=== PATIENT | female | born 2000 | race Hispanic/Latino ===

== ENCOUNTER 2018-06-07 08:54 | Emergency (ER) | payer MEDICAID, OTHER ==
[2018-06-07 09:26] LABS: BASOPHILS % (AUTO) 0.3 % (0.0-5.0); EOSINOPHILS % (AUTO) 0.5 % (0.0-8.0); HEMATOCRIT 41.7 % (36-48); LYMPHOCYTES % (AUTO) 24.5 % (21.0-51.0); MEAN CORPUSCULAR HEMOGLOBIN 28.3 pg (27.0-33.0); MEAN CORPUSCULAR HGB CONC 33.8 g/dL (32.0-36.0); MEAN CORPUSCULAR VOLUME 83.6 fL (80-100); MONOCYTES % (AUTO) 5.5 % (3.0-13.0); NEUTROPHILS % (AUTO) 69.2 % (40.0-77.0); PLATELET COUNT (AUTO) 257 K/uL (130-400); RED BLOOD CELL COUNT(AUTO) 4.98 MIL/uL (4.00-5.50); WHITE BLOOD COUNT (AUTO) 10.5 K/uL (4.8-10.8)
[2018-06-07 09:28] LABS: APPEARANCE,URINE Cloudy (CLEAR); BILIRUBIN,URINE Negative (NEGATIVE); COLOR,URINE Yellow (YELLOW); GLUCOSE, URINE (UA) Negative (NEGATIVE); HCG,QUAL RESULT POSITIVE (NEGATIVE); KETONES,URINE Negative (NEGATIVE); LEUKOCYTE ESTERASE ,URINE Moderate (NEGATIVE); NITRATE,URINE Negative (NEGATIVE); OCCULT BLOOD,URINE Negative (NEGATIVE); PH,URINE 6.5 (5.0-8.0); PROTEIN,URINE Negative (NEGATIVE); UROBILINOGEN,URINE 0.2 mg/dL (0.2-1.0)
[2018-06-07 09:32] LABS: CREATININE 0.6 mg/dL (0.5-1.5); POTASSIUM 3.4 mmol/L (3.5-5.1)
[2018-06-07 09:43] LABS: BACTERIA,URINE Rare /HPF (None Seen); RBC,URINE 0-1 /HPF (0-1); SQUAMOUS EPITHELIAL CELL,UR Moderate /HPF (0-2)
== END 2018-06-07 10:14 | disposition home or self-care (01) ==
LOC: EDH 08:54
DX: O23.41 Unspecified infection of urinary tract in pregnancy, first trimester (principal); Z3A.01 Less than 8 weeks gestation of pregnancy
CPT/HCPCS: 36415; 76817; 80048; 81001; 81025; 84702; 85025; 86900; 86901

== ENCOUNTER 2018-08-24 16:48 | Emergency (ER) | payer MEDICAID ==
[2018-08-24] MEDS ORDERED: DIPHENHYDRAMINE HCL 25 MG CAPSULE ONE (17:24)
== END 2018-08-24 18:49 | disposition home or self-care (01) ==
LOC: EDH 16:48
DX: O26.892 Other specified pregnancy related conditions, second trimester (principal); Z3A.18 18 weeks gestation of pregnancy; Z87.891 Personal history of nicotine dependence
CPT/HCPCS: 87804 ×2; 99283; Q0163

== ENCOUNTER 2022-01-10 23:13 | Observation (INO) | payer MEDICAID ==
[~2022-01-10] VITALS: Ht 157.5 cm; Wt 68.9 kg
[~2022-01-10 23:13] MED LIST: PREN-196 PO; PREN-64 PO
[2022-01-10 23:15] VITALS: BP 115/73
[2022-01-10] MEDS ORDERED: LACTATED RINGERS 1000ML 1,000 ML IV SCH (23:30)
[2022-01-10 23:59] LABS: APPEARANCE,URINE Clear (CLEAR); BILIRUBIN,URINE Negative (NEGATIVE); COLOR,URINE Yellow (YELLOW); GLUCOSE, URINE (UA) Negative (NEGATIVE); KETONES,URINE 40 mg/dL (NEGATIVE); LEUKOCYTE ESTERASE ,URINE Trace (NEGATIVE); NITRATE,URINE Negative (NEGATIVE); OCCULT BLOOD,URINE Negative (NEGATIVE); PH,URINE 6.5 (5.0-8.0); PROTEIN,URINE Negative (NEGATIVE); UROBILINOGEN,URINE 0.2 mg/dL (0.2-1.0)
[2022-01-11 00:02] LABS: AMPHET/METH SCREEN,URINE NEGATIVE (NEGATIVE); BARBITURATE SCREEN, URINE NEGATIVE (NEGATIVE); BENZODIAZEPINES SCREEN,URINE NEGATIVE (NEGATIVE); CANNABINOID SCREEN,URINE NEGATIVE (NEGATIVE); COCAINE SCREEN,URINE NEGATIVE (NEGATIVE); OPIATE SCREEN,URINE NEGATIVE (NEGATIVE); PHENCYCLIDINE SCREEN,URINE NEGATIVE (NEGATIVE)
[2022-01-11 00:37] LABS: BACTERIA,URINE Rare /HPF (None Seen); RBC,URINE None Seen /HPF (0-1); WBC,URINE 0-1 /HPF (0-1)
[2022-01-11] MEDS ORDERED: TERBUTALINE SULFATE VIAL 1MG/ML SQ ONE (01:57)
[2022-01-11] MEDS ORDERED: TERBUTALINE SULFATE VIAL 1MG/ML SQ SCH ×2 (02:00→06:30)
[2022-01-11] MEDS ORDERED: ACETAMINOPHEN 500 MG TABLET PO ONE (02:00)
[2022-01-11] MEDS ORDERED: LACTATED RINGERS 1000ML 1,000 ML IV SCH (02:00)
[2022-01-11] MEDS ORDERED: ACETAMINOPHEN 500 MG TABLET ONE (02:02)
[2022-01-11] MEDS ORDERED: CALCIUM GLUC 1GM/10ML VIAL IV PRN (03:30)
[2022-01-11] MEDS ORDERED: MAGNESIUM 4GM PREMIX 100ML 100 ML IV SCH (03:30)
[2022-01-11] MEDS ORDERED: MAGNESIUM SULFATE 40GM/1000ML 1,000 ML IV PRN (03:30)
== END 2022-01-11 08:15 | disposition home or self-care (01) ==
LOC: EDH 23:13 → LDH 23:14
PROVIDERS: ADMIT Obstetrics & Gynecology; ATTEND Obstetrics & Gynecology
DX: O99.891 Other specified diseases and conditions complicating pregnancy (principal); Z20.822 Contact with and (suspected) exposure to COVID-19; M54.9 Dorsalgia, unspecified; O62.9 Abnormality of forces of labor, unspecified; O26.893 Other specified pregnancy related conditions, third trimester; R50.9 Fever, unspecified; R10.9 Unspecified abdominal pain; Z3A.28 28 weeks gestation of pregnancy; Z79.899 Other long term (current) drug therapy
CPT/HCPCS: 59025; 80305; 81001; 87635; 87804 ×2; 96360; 96361 ×2; 96372 ×2; G0378 ×9; G0379; J3105; J7120 ×2; J3475

== ENCOUNTER 2022-03-28 18:20 | Emergency (ER) | payer MEDICAID ==
[~2022-03-28] VITALS: Ht 157.5 cm; Wt 70.8 kg
[~2022-03-28 18:20] MED LIST changes: +DOCU-116 PO; +IBUP-2077 PO; -PREN-196 PO; +PREN-226 PO; -PREN-64 PO
[2022-03-28 18:22] VITALS: BP 132/86
[2022-03-28] MEDS ORDERED: ACETAMINOPHEN 500 MG TABLET PO ONE (18:30)
[2022-03-28] MEDS ORDERED: IBUPROFEN 600 MG TABLET PO ONE (18:30)
[2022-03-28 18:58] LABS: APPEARANCE,URINE SL CLOUDY (CLEAR); BILIRUBIN,URINE NEGATIVE (NEGATIVE); COLOR,URINE YELLOW (YELLOW); GLUCOSE, URINE (UA) NEGATIVE (NEGATIVE); KETONES,URINE NEGATIVE (NEGATIVE); LEUKOCYTE ESTERASE ,URINE TRACE (NEGATIVE); NITRATE,URINE NEGATIVE (NEGATIVE); OCCULT BLOOD,URINE LARGE (NEGATIVE); PROTEIN,URINE NEGATIVE (NEGATIVE)
[2022-03-28 19:00] LABS: BASOPHILS % (AUTO) 0.2 % (0.0-5.0); EOSINOPHILS % (AUTO) 0.3 % (0.0-8.0); HEMATOCRIT 38.4 % (36-48); LYMPHOCYTES % (AUTO) 10.8 % (21.0-51.0); MEAN CORPUSCULAR HEMOGLOBIN 27.5 pg (27.0-33.0); MEAN CORPUSCULAR HGB CONC 33.3 g/dL (32.0-36.0); MEAN CORPUSCULAR VOLUME 82.4 fL (79-99); MONOCYTES % (AUTO) 5.2 % (3.0-13.0); PLATELET COUNT (AUTO) 197 K/uL (130-400); RED BLOOD CELL COUNT(AUTO) 4.66 MIL/uL (4.00-5.50)
[2022-03-28 19:09] LABS: BACTERIA,URINE Rare /HPF (None Seen); SQUAMOUS EPITHELIAL CELL,UR Few /HPF (0-2)
[2022-03-28 19:11] LABS: CREATININE 0.9 mg/dL (0.5-1.5); POTASSIUM 3.6 mmol/L (3.5-5.1)
[2022-03-28 19:16] LABS: ALBUMIN 2.7 g/dL (3.5-5.0); CRP QUANTITATIVE 107.6 mg/L (0.00-9.0); TOTAL PROTEIN, SERUM 7.5 g/dL (6.0-8.3)
[2022-03-28] MEDS ORDERED: IBUP-2070 PO (19:37)
[2022-03-28] MEDS ORDERED: ACET-2247 PO (19:37)
== END 2022-03-28 19:49 | disposition home or self-care (01) ==
LOC: EDH 18:20
DX: J06.9 Acute upper respiratory infection, unspecified (principal); Z20.822 Contact with and (suspected) exposure to COVID-19; Z79.1 Long term (current) use of non-steroidal anti-inflammatories (NSAID)
CPT/HCPCS: 99283; 87635; 80053; 85025; 87040 ×2; 87880; 87804 ×2; 83605; 86140; 81001; 36415; C9803

== ENCOUNTER → 2023-05-31 | Emergency (ER) | payer MEDICAID ==
[~2023-05-31] MED LIST changes: +ACET-2247 PO; +IBUP-2070 PO
== END ==
LOC: EDH 21:26
DX: R10.9 Unspecified abdominal pain (principal); Z53.21 Procedure and treatment not carried out due to patient leaving prior to being seen by health care provider

== ENCOUNTER 2023-08-16 21:49 | Emergency (ER) | payer MEDICAID ==
[~2023-08-16] VITALS: Ht 154.9 cm; Wt 65.3 kg
[2023-08-17 00:07] LABS: APPEARANCE,URINE CLEAR (CLEAR); BILIRUBIN,URINE NEGATIVE (NEGATIVE); GLUCOSE, URINE (UA) NEGATIVE (NEGATIVE); KETONES,URINE NEGATIVE (NEGATIVE); LEUKOCYTE ESTERASE ,URINE NEGATIVE Leu/uL (NEGATIVE); NITRATE,URINE NEGATIVE (NEGATIVE); OCCULT BLOOD,URINE NEGATIVE (NEGATIVE); PROTEIN,URINE NEGATIVE (NEGATIVE); UROBILINOGEN,URINE 0.2 mg/dL (0.2-1.0)
[2023-08-17 00:10] LABS: ADD UA MICROSCOPIC NO; COLOR,URINE Light-Yellow (YELLOW)
[2023-08-17 00:52] LABS: BASOPHILS # (AUTO) 0.02 K/uL (0.00-0.20); BASOPHILS % (AUTO) 0.2 % (0.0-5.0); EOSINOPHILS # (AUTO) 0.06 K/uL (0.00-0.70); EOSINOPHILS % (AUTO) 0.7 % (0.0-8.0); HEMATOCRIT 40.1 % (36-48); IMMATURE GRANULOCYTE ABSOLUTE 0.03 K/uL (0-1); LYMPHOCYTES # (AUTO) 2.6 K/uL (1.0-4.8); MEAN CORPUSCULAR HEMOGLOBIN 28.1 pg (27.0-33.0); MEAN CORPUSCULAR HGB CONC 34.2 g/dL (32.0-36.0); MEAN CORPUSCULAR VOLUME 82.3 fL (79-99); MONOCYTES # (AUTO) 0.6 K/uL (0.1-1.0); MONOCYTES % (AUTO) 6.2 % (3.0-13.0); NEUTROPHILS # (AUTO) 5.8 K/uL (1.8-7.7); NEUTROPHILS % (AUTO) 63.6 % (40.0-77.0); PLATELET COUNT (AUTO) 238 K/uL (130-400); RED BLOOD CELL COUNT(AUTO) 4.87 MIL/uL (4.00-5.50); RED CELL DISTRIBUTION WIDTH 13.7 % (11.0-15.5); WHITE BLOOD COUNT (AUTO) 9.1 K/uL (4.8-10.8)
[2023-08-17 01:00] LABS: CREATININE 0.6 mg/dL (0.5-1.5); POTASSIUM 4.1 mmol/L (3.5-5.1)
[2023-08-17 01:25] LABS: ALBUMIN 3.9 g/dL (3.5-5.0); BILIRUBIN,TOTAL 0.6 mg/dL (0.2-1.0); TOTAL PROTEIN, SERUM 7.9 g/dL (6.0-8.3)
[2023-08-17] MEDS ORDERED: OMEP40CA21 PO (04:41)
[2023-08-17] MEDS ORDERED: ONDA-104 PO (04:41)
[2023-08-17 04:53] VITALS: BP 126/72; PULSE 69; RESP 18; O2SAT 100
== END 2023-08-17 04:54 | disposition home or self-care (01) ==
LOC: EDH 21:49
DX: O26.891 Other specified pregnancy related conditions, first trimester (principal); R10.9 Unspecified abdominal pain; R10.2 Pelvic and perineal pain; O21.9 Vomiting of pregnancy, unspecified; Z3A.01 Less than 8 weeks gestation of pregnancy
CPT/HCPCS: 36415; 76705; 76801; 80053; 81003; 81025; 83690; 84702; 85025

== ENCOUNTER 2023-12-04 01:07 | Observation (INO) | payer MEDICAID ==
[~2023-12-04] VITALS: Ht 157.5 cm; Wt 67.1 kg
[~2023-12-04 01:07] MED LIST changes: +OMEP40CA21 PO; +ONDA-104 PO
[2023-12-04 01:19] VITALS: BP 123/71; PULSE 67; RESP 18
[2023-12-04 01:48] LABS: APPEARANCE,URINE CLEAR (CLEAR); BILIRUBIN,URINE NEGATIVE (NEGATIVE); COLOR,URINE COLORLESS (YELLOW); GLUCOSE, URINE (UA) NEGATIVE (NEGATIVE); KETONES,URINE NEGATIVE (NEGATIVE); LEUKOCYTE ESTERASE ,URINE NEGATIVE Leu/uL (NEGATIVE); NITRATE,URINE NEGATIVE (NEGATIVE); OCCULT BLOOD,URINE NEGATIVE (NEGATIVE); PH,URINE 6.5 (5.0-8.0); PROTEIN,URINE NEGATIVE (NEGATIVE); UROBILINOGEN,URINE 0.2 mg/dL (0.2-1.0)
[2023-12-04 01:49] LABS: ADD UA MICROSCOPIC NO
== END 2023-12-04 03:15 | disposition home or self-care (01) ==
LOC: EDH 01:07 → LDH 01:08
PROVIDERS: ADMIT Obstetrics & Gynecology; ATTEND Obstetrics & Gynecology
DX: O26.892 Other specified pregnancy related conditions, second trimester (principal); R10.11 Right upper quadrant pain; Z3A.22 22 weeks gestation of pregnancy
CPT/HCPCS: 81003; 76705; G0378 ×2; G0379

== ENCOUNTER 2024-03-26 00:19 | Inpatient (IN) | payer MEDICAID ==
[~2024-03-26] VITALS: Ht 157.5 cm; Wt 72.1 kg
[2024-03-26 00:53] LABS: APPEARANCE,URINE CLEAR (CLEAR); BILIRUBIN,URINE NEGATIVE (NEGATIVE); COLOR,URINE LIGHT-YELLOW (YELLOW); GLUCOSE, URINE (UA) NEGATIVE (NEGATIVE); KETONES,URINE NEGATIVE (NEGATIVE); LEUKOCYTE ESTERASE ,URINE 75 Leu/uL (NEGATIVE); NITRATE,URINE NEGATIVE (NEGATIVE); OCCULT BLOOD,URINE NEGATIVE (NEGATIVE); PH,URINE 6.5 (5.0-8.0); PROTEIN,URINE NEGATIVE (NEGATIVE); UROBILINOGEN,URINE 0.2 mg/dL (0.2-1.0)
[2024-03-26 00:59] LABS: ADD UA MICROSCOPIC YES
[2024-03-26] MEDS ORDERED: EPHEDRINE SULFATE 50 MG/ML AMPULE IVP PRN (01:00)
[2024-03-26] MEDS ORDERED: NALOXONE HCL 0.4 MG/1 ML ML IV PRN (01:00)
[2024-03-26] MEDS ORDERED: LACTATED RINGERS 500 ML 500 ML IV PRN (01:00)
[2024-03-26] MEDS ORDERED: ROPIVACAINE 0.2% 2MG/ML 100ML VIAL EP SCH (01:00)
[2024-03-26 01:06] LABS: HEMATOCRIT 37.4 % (36-48); MEAN CORPUSCULAR HEMOGLOBIN 28.4 pg (27.0-33.0); MEAN CORPUSCULAR HGB CONC 34.5 g/dL (32.0-36.0); MEAN CORPUSCULAR VOLUME 82.4 fL (79-99); RED BLOOD CELL COUNT(AUTO) 4.54 MIL/uL (4.00-5.50); RED CELL DISTRIBUTION WIDTH 14.2 % (11.0-15.5); WHITE BLOOD COUNT (AUTO) 9.8 K/uL (4.8-10.8)
[2024-03-26 01:08] LABS: BACTERIA,URINE FEW /HPF (None Seen); SQUAMOUS EPITHELIAL CELL,UR FEW /HPF (0-2)
[2024-03-26] MEDS: AMPICILLIN 2GM+NS 100ML IV ONE (01:08)
[2024-03-26] MEDS: ACETAMINOPHEN 500 MG TABLET PO ONE (01:46)
[2024-03-26 02:15] LABS: HIV 1&2 ANTIBODY Non-Reactive (Negative)
[2024-03-26 02:16] LABS: HIV-1 p24 Antigen Non-Reactive (Negative)
[2024-03-26] MEDS: LACTATED RINGERS 1000ML 1,000 ML IV PRN (04:58)
[2024-03-26] MEDS: AMPICILLIN 1GM+NS 50ML IV SCH (04:59)
[2024-03-26] MEDS: OXYTOCIN-LR 30 UNITS/500ML 500 ML IV SCH ×2 (05:23→19:54)
[2024-03-26] MEDS: MEPERIDINE-PF 50 MG/ML SYG IVP PRN (17:01)
[2024-03-26] MEDS: PROMETHAZINE HCL 25 MG/ML 1ML AMPULE IM PRN (17:01)
[2024-03-26] MEDS: LIDOCAINE HCL 1% 20 ML VIAL ONE (17:37)
[2024-03-26] MEDS: METHYLERGONOVINE MALEATE 0.2 MG/1 ML ML ONE (17:37)
[2024-03-26] MEDS: MISOPROSTOL 200 MCG TABLET ONE (17:37)
[2024-03-26] MEDS ORDERED: OXYTOCIN-LR 30 UNITS/500ML 500 ML IV SCH (19:30)
[2024-03-26] MEDS ORDERED: ACETAMINOPHEN WITH CODEINE 1 TAB TAB PO PRN (19:30)
[2024-03-26] MEDS ORDERED: ACETAMINOPHEN 325 MG TAB PO PRN (19:30)
[2024-03-26] MEDS ORDERED: LANOLIN 30GM OINTMENT TP PRN (19:30)
[2024-03-26] MEDS: IBUPROFEN 600 MG TABLET PO PRN (19:43)
[2024-03-26] MEDS: DOCUSATE SODIUM 100 MG CAP PO SCH (21:24)
[2024-03-27] VITALS: BP 114/73
[2024-03-27 04:00] VITALS: BP 106/66; PULSE 62; RESP 20
[2024-03-27] MEDS: BENZOCAINE/LANOLIN/ALOE VERA 60 ML AEROSOL TP PRN (04:39)
[2024-03-27] MEDS: WITCH HAZEL 1 PAD TP PRN (04:40)
[2024-03-27 06:54] LABS: HEMATOCRIT 34.1 % (36-48); MEAN CORPUSCULAR HEMOGLOBIN 28.6 pg (27.0-33.0); MEAN CORPUSCULAR HGB CONC 33.1 g/dL (32.0-36.0); MEAN CORPUSCULAR VOLUME 86.3 fL (79-99); RED BLOOD CELL COUNT(AUTO) 3.95 MIL/uL (4.00-5.50); RED CELL DISTRIBUTION WIDTH 14.2 % (11.0-15.5); WHITE BLOOD COUNT (AUTO) 9.1 K/uL (4.8-10.8)
[2024-03-27 07:15] VITALS: PULSE 62; RESP 20
[2024-03-27] MEDS: DIPH,PERTUSS(ACELL),TET VAC/PF 0.5 ML VIAL IM PRN (10:18)
[2024-03-27] MEDS: MEASLES/MUMPS/RUBELLA VACCINE, LIVE 0.5 ML/VIAL SQ PRN (10:19)
[2024-03-27 11:30] VITALS: BP 115/70; PULSE 74; RESP 20
[2024-03-27 14:23] LABS: RAPID PLASMA REAGIN NONREACTIVE (NONREACTIVE)
[2024-03-27 15:45] VITALS: BP 105/51; PULSE 75; RESP 20
== END 2024-03-27 18:55 | disposition home or self-care (01) | DRG 560 ==
LOC: EDH 00:19 → OBSVTOIN 00:20 → LDH 00:20 → WSH 21:34
PROVIDERS: ADMIT Obstetrics & Gynecology; ATTEND Obstetrics & Gynecology
PROC: 0KQM0ZZ Repair Perineum Muscle, Open Approach (ICD-10-PCS; principal; 2024-03-26)
PROC: 10E0XZZ Delivery of Products of Conception, External Approach (ICD-10-PCS; 2024-03-26)
DX: O70.1 Second degree perineal laceration during delivery (principal); Z37.0 Single live birth; Z3A.39 39 weeks gestation of pregnancy
CPT/HCPCS: 36415; 76805; 81001; 85027; 86592; 86701; 86850; 86900; 86901; 87086; 87340; 87390; 90707; 90715; A4351; G0378; J0290; J2175; J2210; J2550

== ENCOUNTER 2024-12-19 08:39 | Emergency (ER) | payer MEDICAID ==
[~2024-12-19] VITALS: Ht 157.5 cm; Wt 71.2 kg
[~2024-12-19 08:39] MED LIST changes: -ACET-2247 PO; -DOCU-116 PO; -IBUP-2070 PO; -IBUP-2077 PO; -OMEP40CA21 PO; -ONDA-104 PO
--- NOTE | 2024-12-19 09:14 | ERN ---
General Chief Complaint: Vaginal Bleeding Stated Complaint: VAG BLEEDING 5 WEEKS GESTATION Time Seen by MD: 08:46 History of Present Illness Initial Comments 24-year-old female, , [facility] one week ago which showed a gestational sac, presents for vaginal bleeding. Patient reports that over the last few days she has had nausea and diarrhea generalized abdominal discomfort. She reports that her kids are sick with a similar illness. Yesterday she had a bit of spotting, this morning she was some blood clots. She does report some lower pelvic cramping in the lower pelvis in the lower back. She denies any fevers. P.o. tolerant tolerant decreased p.o. intake. No jayden abdominal tenderness. Allergies: Coded Allergies: No Known Drug Allergies (Unverified Allergy, Unknown, 03/26/24) No Known Drug Intolerances (Unverified Allergy, Unknown, 03/26/24) Home Meds Reported Medications Vit No.179/Iron/Folic ( Tablet) 1 Each Tablet, 1 EACH PO DAILY, TAB 03/25/22 Past Medical History Past Medical History: No Pertinent History Past Surgical History: None Family History Family History: Negative Social History Social History: Negative Female( History) LMP: Dec 04, 2024 : 5 Para: 4 Aborts: 0 ROS Dictation CONSTITUTIONAL: No chills, no fever, no weakness, no diaphoresis, no malaise. HEAD/FACE: No signs of trauma. EENT: No eye pain, no blurred vision, no tearing, no double vision, no ear pain, no ear discharge, no nose pain, no nasal congestion, no throat pain, no throat swelling, no mouth pain. RESPIRATORY: No cough, no orthopnea, no SOB, no stridor, no wheezing. CARDIOVASCULAR: No chest pain, no edema, no palpitations, no syncope. GASTROINTESTINAL/ABDOMINAL: Generalized abdominal pain, nausea, diarrhea GENITOURINARY: No discharge or pain, vaginal bleeding and pelvic cramping MUSCULOSKELETAL: No back pain, no gout, no joint pain, no joint swelling, no muscle pain, no muscle stiffness, no neck pain. INTEGUMENTARY: No change in color, no change in hair/nails, no dryness, no lesion, no lumps, no rash. NEUROLOGICAL/PSYCH: No anxiety, not depressed, no emotional problem, no headache, no numbness, no pre-existing deficit, no history of seizures, no tremors, no weakness. HEMATOLOGIC/LYMPHATIC: Not anemic, no history of blood clots, no apparent bleeding, no bruising, glands not swollen. All Systems Negative, Except as Noted. Physical Exam Physical Exam Dictation VITAL SIGNS: Reviewed. GENERAL APPEARANCE: Alert, oriented x3, moderate distress due to pain HEAD AND FACE: Non-traumatic. EYES: PERRL, pink conjunctivas, eyelid no trauma, anterior chamber clear. EARS: Pinnas intact and no signs of trauma or erythema. Ear canals clear and no discharge. TMs no erythema. NOSE: No discharge, no bleeding. OROPHARYNX: Mouth normal, teeth no caries, tongue pink. Pharynx clear, no erythema. Tonsils no exudates, no abscesses noted. Mucous membrane moist. NECK: Supple, non-tender, no thyromegaly, no masses, no JVD, no bruits. BREAST: Deferred. CHEST: No tenderness, no crepitus, no paradoxical movement, no retractions. LUNGS: Clear, well-ventilated, symmetric, no rales, no wheezing, no rhonchi, no stridor, good breath sounds bilaterally. HEART: Regular rate, regular rhythm, no murmur, no gallops. VASCULAR: No peripheral edema. ABDOMEN: Soft, positive bowel sounds, nondistended, no guarding, nontender, no rebound, no masses no hepatomegaly, no splenomegaly, no Lucio's sign, no hernias. RECTAL: Deferred. GENITAL: Deferred. NEUROLOGICAL: Normal speech, gross motor function intact, gross sensory function intact. MUSCULOSKELETAL: Neck nontender, full range of motion, back nontender, full range of motion. EXTREMITIES: Nontender, full range of motion. SKIN: Color pink, dry, no turgor, no rash, no lacerations, no abrasions, no contusions. LYMPHATICS: Deferred. Results Laboratory and Microbiology Lab and Micro Result Laboratory Tests Test 12/19/24 09:16 White Blood Count 9.9 K/uL (4.8-10.8) Red Blood Count 5.06 MIL/uL (4.00-5.50) Hemoglobin 14.7 g/dL (12.0-16.0) Hematocrit 43.2 % (36-48) Mean Corpuscular Volume 85.4 fL (79-99) Mean Corpuscular Hemoglobin 29.1 pg (27.0-33.0) Mean Corpuscular Hemoglobin Concent 34.0 g/dL (32.0-36.0) Red Cell Distribution Width 13.5 % (11.0-15.5) Platelet Count 210 K/uL (130-400) Mean Platelet Volume 9.8 fL (7.5-10.5) Immature Granulocyte % (Auto) 0.3 % (0-1) Neutrophils (%) (Auto) 81.4 % (40.0-77.0) H Lymphocytes (%) (Auto) 13.2 % (21.0-51.0) L Monocytes (%) (Auto) 4.3 % (3.0-13.0) Eosinophils (%) (Auto) 0.7 % (0.0-8.0) Basophils (%) (Auto) 0.1 % (0.0-5.0) Neutrophils # (Auto) 8.0 K/uL (1.8-7.7) H Lymphocytes # (Auto) 1.3 K/uL (1.0-4.8) Monocytes # (Auto) 0.4 K/uL (0.1-1.0) Eosinophils # (Auto) 0.07 K/uL (0.00-0.70) Basophils # (Auto) 0.01 K/uL (0.00-0.20) Absolute Immature Granulocyte (auto 0.03 K/uL (0-1) Nucleated Red Blood Cells 0.0 % (0.0-0.19) Sodium Level 138 mmol/L (136-145) Potassium Level 3.6 mmol/L (3.5-5.1) Chloride Level 103 mmol/L (101-111) Carbon Dioxide Level 25 mmol/L (21-32) Blood Urea Nitrogen 11 mg/dL (7-18) Creatinine 0.6 mg/dL (0.5-1.0) Glomerular Filtration Rate Calc 127 mL/min (>90) Random Glucose 110 mg/dL (70-105) H Total Calcium 8.5 mg/dL (8.5-10.1) Human Chorionic Gonadotropin, Quant 483 mIU/mL (0-5) H Serum Test, Qualitative POSITIVE (NEGATIVE) H MDM CC: Vaginal bleeding in early Historian: Patient Comorbidities: None Limitations by social determinants of health: None Differential diagnosis: Physiologic bleeding, miscarriage, ectopic , anemia, other. Vital signs are stable Clinical exam is unremarkable other than discomfort due to pelvic pain. Treatment in ED: 1 L of fluid, IV morphine for pain Ultrasound (independently interpreted by me ): No signs of IUP. Based on the fact that the patient had an IUP on a recent ultrasound, patient was symptoms most consistent with miscarriage. Labs (interpreted by me): BMP normal, hcg 483, ABO Rh O+ (no rhogam indicated). CBC normal, no anemia. No signs of ectopic. Likely miscarraige. DC to PCP or OB f/u. ED Course Orders Procedure Category Date Status Time Cbc With Differential LAB 12/19/24 Complete 09:06 Testing, LAB 12/19/24 Complete Serum Hcg 09:06 Abo/Rh BBK 12/19/24 Complete 09:06 Hcg,Quantitative LAB 12/19/24 Complete 09:06 Lactated Ringers PHA 12/19/24 Complete 1000ml (Lactated 09:06 Morphine 4mg Syg PHA 12/19/24 Complete (Morphine 4mg Syg) 09:30 Ondansetron 4mg Inj PHA 12/19/24 Complete (Zofran 4mg Inj) 09:30 Type And Screen BBK 12/19/24 Complete 09:06 Basic Metabolic Panel LAB 12/19/24 Complete 09:06 Us Ob <14 Weeks US 12/19/24 Resulted 09:06 Current Medications Medications (Trade) Dose Ordered Sig/Randy Route PRN Reason Start Time Stop Time Status Last Admin Dose Admin Lactated Ringer's 1,000 ml @ 0 mls/hr Q0M STAT IV 12/19/24 09:06 12/19/24 09:08 DC 12/19/24 09:22 Morphine Sulfate (morPHINE 4MG SYG) 4 mg ONCE ONCE IVP 12/19/24 09:30 12/19/24 09:31 DC 12/19/24 09:23 Ondansetron HCl (zoFRAN 4MG INJ) 4 mg ONCE ONCE IVP 12/19/24 09:30 12/19/24 09:31 DC 12/19/24 09:22 Vital Signs Date Time Temp Pulse Resp B/P (MAP) Pulse Ox O2 Delivery O2 Flow Rate FiO2 12/19/24 09:28 89 18 131/90 99 Room Air* 0 21 12/19/24 08:40 97.5 86 20 141/93 98 Room Air 0 DX & DISP Disposition: Discharge Departure Impression: Primary Impression: Threatened Condition: Stable Additional Instructions: There are no signs of on the ultrasound. You are likely having a miscarriage. Your beta hcg (hormone level) is 483. You will need to follow up with a OBGYN next week. Take 1000mg tylenol up to 4 times per day for pain. Please return to the emergency department as needed. Referrals: JOSE ALEJANDRO WATSON MD (PCP) NAYA MORENO DO December 19, 2024 09:14
[2024-12-19] MEDS: LACTATED RINGERS 1000ML 1,000 ML IV STA (09:22)
[2024-12-19] MEDS: ondanSETRON 4MG INJ IVP ONE (09:22)
[2024-12-19] MEDS: morPHINE 4 MG SYG IVP ONE (09:23)
[2024-12-19 09:28] LABS: BASOPHILS # (AUTO) 0.01 K/uL (0.00-0.20); BASOPHILS % (AUTO) 0.1 % (0.0-5.0); EOSINOPHILS # (AUTO) 0.07 K/uL (0.00-0.70); EOSINOPHILS % (AUTO) 0.7 % (0.0-8.0); HEMATOCRIT 43.2 % (36-48); IMMATURE GRANULOCYTE ABSOLUTE 0.03 K/uL (0-1); LYMPHOCYTES # (AUTO) 1.3 K/uL (1.0-4.8); LYMPHOCYTES % (AUTO) 13.2 % (21.0-51.0); MEAN CORPUSCULAR HEMOGLOBIN 29.1 pg (27.0-33.0); MEAN CORPUSCULAR VOLUME 85.4 fL (79-99); MONOCYTES # (AUTO) 0.4 K/uL (0.1-1.0); MONOCYTES % (AUTO) 4.3 % (3.0-13.0); NEUTROPHILS % (AUTO) 81.4 % (40.0-77.0); PLATELET COUNT (AUTO) 210 K/uL (130-400); RED BLOOD CELL COUNT(AUTO) 5.06 MIL/uL (4.00-5.50); RED CELL DISTRIBUTION WIDTH 13.5 % (11.0-15.5); WHITE BLOOD COUNT (AUTO) 9.9 K/uL (4.8-10.8)
[2024-12-19 09:45] LABS: CREATININE 0.6 mg/dL (0.5-1.0); POTASSIUM 3.6 mmol/L (3.5-5.1)
--- NOTE | 2024-12-19 10:48 | HMCIMG ---
US OB <14 WEEKS HISTORY: No additional history given. COMPARISON: None TECHNIQUE: Obstetrical ultrasound study was performed. FINDINGS: The uterus measures 7.6 x 5.4 x 6.6 centimeter. Right ovary measures 3.5 x 2 x 2 centimeter. Left ovary measures 3 x 2.1 x 2.6 centimeter. Flow is seen in both ovaries. No evidence of intrauterine gestational sac is seen. In a patient with positive test, differential diagnosis would include early versus ectopic versus missed . Beta-hCG correlation is recommended. No fluid is seen in the cul-de-sac. IMPRESSION: 1. . No evidence of intrauterine gestational sac is seen. In a patient with positive test, differential diagnosis would include early versus ectopic versus missed . Beta-hCG correlation is recommended
[2024-12-19 11:05] VITALS: BP 125/84; PULSE 90; RESP 14; TEMP 97.9; O2SAT 98
== END 2024-12-19 11:11 | disposition home or self-care (01) ==
LOC: EDH 08:39
DX: O20.0 Threatened abortion (principal); Z3A.01 Less than 8 weeks gestation of pregnancy; Z79.899 Other long term (current) drug therapy
CPT/HCPCS: 99285; 96374; 76801; 96361; 96375; 80048; 84703; 84702; 85025; 86850; 86900; 86901; 36415; J7120; J2405; J2270